=== PATIENT | female | born 1985 | race Caucasian/White ===

== ENCOUNTER 2020-02-02 17:36 | Emergency (ER) | payer SELFPAY ==
[~2020-02-02] VITALS: Ht 157.5 cm; Wt 72.6 kg
[2020-02-02 17:38] VITALS: BP 160/98
--- NOTE | 2020-02-02 17:49 | NUR ---
PT TAKEN TO ER BED 02
--- NOTE | 2020-02-02 17:50 | NUR ---
dr alexis at bedside evaluating pt.
--- NOTE | 2020-02-02 18:10 | NUR ---
C/O PALPITATIONS AND SOB STARTING TODAY. HR 140. O2 SAT RA 100% DENIES USE OF DRUGS/ETOH , PT AOX4 , AFIBRILE, AMBULATORY WITH STEADY GAIT , DENIES PAIN , SCE , FLAT SOFT ABDOMEN. HX: NONE RX: NONE
--- NOTE | 2020-02-02 18:27 | NUR ---
LABS AT BEDSIDE.
[2020-02-02 18:33] LABS: BASOPHILS # (AUTO) 0.1 K/uL (0.00-0.22); BASOPHILS % (AUTO) 0.7 % (0.0-2.0); EOSINOPHILS % (AUTO) 0.5 % (0.0-4.0); HEMATOCRIT 36.6 % (36-48); HEMOGLOBIN 12.5 g/dL (12.0-16.0); LYMPHOCYTES # (AUTO) 2.1 K/uL (2.5-16.5); LYMPHOCYTES % (AUTO) 23.1 % (20.5-51.1); MEAN CORPUSCULAR HEMOGLOBIN 30 pg (27-31); MEAN CORPUSCULAR HGB CONC 34 g/dL (33-37); MEAN CORPUSCULAR VOLUME 87.4 fL (80-94); MONOCYTES # (AUTO) 0.5 K/uL (0.8-1.0); MONOCYTES % (AUTO) 5.3 % (1.7-9.3); NEUTROPHILS # (AUTO) 6.2 K/uL (1.8-7.7); NEUTROPHILS % (AUTO) 70.4 % (42.2-75.2); PLATELET COUNT (AUTO) 303 K/uL (140-450); RED BLOOD CELL COUNT(AUTO) 4.19 MIL/uL (4.20-5.40); RED CELL DISTRIBUTION WIDTH 13.6 % (11.6-13.7); WHITE BLOOD COUNT (AUTO) 8.9 K/uL (4.8-10.8)
[2020-02-02 18:52] LABS: ALBUMIN 4.2 g/dL (3.4-5.0); ANION GAP 14.7 (8-16); CARBON DIOXIDE 24.9 mmol/L (21-32); CREATININE 0.9 mg/dL (0.6-1.3); FREE T4 (FREE THYROXINE) 1.01 ng/dL (0.76-1.46); MAGNESIUM 2.1 mg/dL (1.8-2.4); POTASSIUM 3.6 mmol/L (3.5-5.1); THYROID STIMULATING HORMONE 3.13 uIU/mL (0.34-3.74); TOTAL BILIRUBIN 0.3 mg/dL (0.0-1.0)
--- NOTE | 2020-02-02 19:14 | NUR ---
gave report to tess garcia pt with stable v/s comfortable in bed ,side rail up and lock at lowest position.
--- NOTE | 2020-02-02 19:17 | NUR ---
RECEIVED ENDORSEMENT FROM ARSLAN RN. PT LYING DOWN, SIDERAILS UP. NO REPORT OF PAIN, PT REPORTS "FEELING BETTER" CURRENT HR-111 BPM, PAIN-0, RR-15. LUNG SOUNDS CLEAR, NO C/O COUGH OR SOB.
[2020-02-02 20:40] VITALS: BP 135/88
--- NOTE | 2020-02-02 20:40 | NUR ---
Patient discharged with v/s stable. Written and verbal after care instructions given and explained. Patient verbalized understanding. Ambulatory with steady gait. All questions addressed prior to discharge. Advised to follow up with PMD.
== END 2020-02-02 20:40 | disposition home or self-care (01) ==
LOC: MED 17:36
DX: R00.2 Palpitations (principal); I10 Essential (primary) hypertension
CPT/HCPCS: 36415; 80053; 83735; 84439; 84443; 85025; 85379; 93005; 99284